=== PATIENT | female | born 1980 | race Caucasian/White ===

== ENCOUNTER 2017-01-03 21:04 | Emergency (ER) | payer OTHER ==
[~2017-01-03] VITALS: Ht 170.2 cm; Wt 115.0 kg
[~2017-01-03 21:04] MED LIST: ZOFRAN4 MG/TAB PO
[2017-01-03 22:20] LABS: INFLUENZA A NONE DETECTED (NONE DETECT); INFLUENZA B NONE DETECTED (NONE DETECT)
[2017-01-03] MEDS ORDERED: AMOXICILLIN500 MG PO (22:53)
[2017-01-03] MEDS ORDERED: VENTOLIN HFA IN (22:53)
[2017-01-03 23:17] VITALS: BP 163/55
== END 2017-01-03 23:17 | disposition home or self-care (01) | DRG 203 ==
LOC: ED 21:04
PROVIDERS: Emergency Medicine
DX: J45.909 Unspecified asthma, uncomplicated (principal); I10 Essential (primary) hypertension; F17.210 Nicotine dependence, cigarettes, uncomplicated

== ENCOUNTER 2017-01-30 12:17 | Emergency (ER) | payer OTHER ==
[~2017-01-30] VITALS: Ht 170.2 cm; Wt 115.0 kg
[~2017-01-30 12:17] MED LIST changes: +AMOXICILLIN500 MG PO; +VENTOLIN HFA IN
[2017-01-30] MEDS ORDERED: TYLENOL # 31 TA1 PO (13:12)
[2017-01-30] MEDS ORDERED: LEVAQUIN500 MG PO (13:12)
[2017-01-30] MEDS ORDERED: PREDNISONE10 MG PO (13:12)
[2017-01-30 13:51] VITALS: BP 186/86
[2017-01-30] MEDS ORDERED: VENTOLIN HFA IN (13:51)
== END 2017-01-30 14:06 | disposition home or self-care (01) | DRG 203 ==
LOC: ED 12:17
DX: J45.909 Unspecified asthma, uncomplicated (principal); I10 Essential (primary) hypertension; F17.210 Nicotine dependence, cigarettes, uncomplicated

== ENCOUNTER 2017-02-01 18:15 | Emergency (ER) | payer OTHER ==
[~2017-02-01] VITALS: Ht 170.2 cm; Wt 112.0 kg
[~2017-02-01 18:15] MED LIST changes: +LEVAQUIN500 MG PO; +PREDNISONE10 MG PO; +TYLENOL # 31 TA1 PO
[2017-02-01 18:41] LABS: HEMATOCRIT 40.3 % (37.0-47.0); HEMOGLOBIN 13.6 g/dl (12.0-16.0); MEAN CELL VOLUME 80.8 fL CALC (80.0-100.0); MEAN CORPUSCULAR HGB 27.3 pG CALC (26.0-32.0); MEAN CORPUSCULAR HGB CONC 33.7 g/L CALC (32.0-36.0); NEUT# 14.42 thou/uL (2.00-7.15); RED BLOOD COUNT 4.99 mill/uL (4.20-5.60); RED CELL DISTRI WIDTH 14.3 % (11.5-15.5)
[2017-02-01 18:49] LABS: ALBUMIN 4.2 g/dL (3.2-5.0); ALKALINE PHOSPHATASE 79 u/l (38-126); ANION GAP 16 (6-22 (CALC)); BILIRUBIN, TOTAL 0.3 mg/dL (0.0-1.4); BUN 11 mg/dL (7-17); BUN/CREATININE RATIO 15 (12-20 (CALC)); CALCIUM 9.5 mg/dL (8.4-10.2); CARBON DIOXIDE 22 mmol/l (22-30); CHLORIDE 104 mmol/l (95-108); CREATININE 0.8 mg/dL (0.5-1.0); GFR > 60 ML/MIN (>=60 (CALC)); GFR FOR AFR.AMER. > 60 ML/MIN (>=60 (CALC)); GLUCOSE 198 mg/dL (65-105); POTASSIUM 3.8 mmol/l (3.5-5.1); SGOT/AST 24 u/l (14-36); SGPT/ALT 37 u/l (9-52); SODIUM 139 mmol/l (137-146); TOTAL PROTEIN 7.5 g/dL (6.3-8.2)
[2017-02-01 19:01] LABS: MYOGLOBIN 46 ng/mL (0 - 62)
[2017-02-01] MEDS ORDERED: ZPAK PO (19:17)
[2017-02-01] MEDS ORDERED: ROBITUSSIN AC10 ML PO (19:17)
[2017-02-01 19:40] VITALS: BP 162/79
== END 2017-02-01 19:40 | disposition home or self-care (01) | DRG 192 ==
LOC: ED 18:15
PROVIDERS: Emergency Medicine
DX: J44.1 Chronic obstructive pulmonary disease with (acute) exacerbation (principal); F17.200 Nicotine dependence, unspecified, uncomplicated; J02.9 Acute pharyngitis, unspecified; R06.02 Shortness of breath